=== PATIENT | male | born 1965 | race Caucasian/White ===

== ENCOUNTER 2025-01-25 23:36 | Emergency (ER) | payer SELFPAY ==
[~2025-01-25] VITALS: Ht 167.6 cm; Wt 79.0 kg
[2025-01-25 23:46] VITALS: O2SAT 96
[2025-01-26] MEDS: ONDANSETRON HCL 4MG/2ML INJ IV STA (00:24)
[2025-01-26] MEDS: MORPHINE SULFATE 4 MG/ML INJ (FOR IV/IM USE) IV STA (00:24)
[2025-01-26] MEDS: SODIUM CHLORIDE 0.9% 1,000 ML IV ONE (00:27)
[2025-01-26 00:45] VITALS: BP 139/78; PULSE 84; RESP 26; TEMP 36.5; O2SAT 98
[2025-01-26 01:50] LABS: BASOPHILS % 0.2 % (0.0-2.0); EOSINOPHILS % 1.7 % (0.0-5.0); LYMPHOCYTES % 12.9 % (20.0-50.0); MEAN CORPUSCULAR HEMOGLOBIN 31.1 pg (28.0-32.0); MEAN CORPUSCULAR HGB CONC 33.3 g/dL (31.0-37.0); MEAN CORPUSCULAR VOLUME 93.4 fL (80.0-94.0); MEAN PLATELET VOLUME 9.2 fl (7.4-10.4); MONOCYTES % 3.7 % (2.0-8.0); NEUTROPHILS % 81.5 % (40.0-76.0); PLATELET 249 x1000/uL (130-400); RED BLOOD CELL COUNT 3.85 mill/uL (4.7-6.1); RED CELL DISTRIBUTION WIDTH 12.9 % (11.6-14.6); WHITE BLOOD COUNT 18.8 x1000/uL (4.5-11.0)
== END 2025-01-26 00:52 | disposition short-term general hospital (02) ==
LOC: ER 23:36
DX: S09.90XA Unspecified injury of head, initial encounter (principal); R31.0 Gross hematuria; R57.8 Other shock; X58.XXXA Exposure to other specified factors, initial encounter; Y93.89 Activity, other specified; Y92.89 Other specified places as the place of occurrence of the external cause; Y99.8 Other external cause status
CPT/HCPCS: 99285; 85025; 86850; 86900; 86901; 86920; 36415; 71045; 96361; 96374; 96375; Z7610; J2405; J2270; J7030